=== PATIENT | female | born 1960 | race Caucasian/White ===

== ENCOUNTER 2022-10-04 07:39 | Emergency (ER) | payer BC, OTHER ==
[~2022-10-04] VITALS: Ht 157.5 cm; Wt 102.8 kg
[2022-10-04 07:40] VITALS: TEMP 98.4
[2022-10-04] MEDS ORDERED: FLON1SPR NARES (08:03)
[2022-10-04] MEDS ORDERED: SYST1SOL4 OP (08:03)
[2022-10-04] MEDS ORDERED: PRIL20TA2 PO (08:03)
[2022-10-04] MEDS ORDERED: ZYRTTAB8 PO (08:03)
[2022-10-04] MEDS ORDERED: dexAMETHasone 20MG/5ML VIAL IV ONE (11:25)
[2022-10-04] MEDS ORDERED: KETOROLAC 30 MG/ML 1ML VIAL IV ONE (11:25)
[2022-10-04] MEDS ORDERED: CLINDAMYCIN 900 MG in IV 1 EA IV ONE (11:25)
[2022-10-04] MEDS ORDERED: ISOVUE-370 76% 100ML VIAL As Ordered ONE (11:58)
[2022-10-04 12:00] LABS: BASO % 0.5 % (0.0-1.0); EOS % 0.5 % (0.0-3.0); HEMOGLOBIN 12.7 g/dl (12.0-15.5); LYMPH # 2.1 10^3/uL (1.5-5.0); LYMPH % 26.2 % (24.0-44.0); MEAN CORPUSCULAR HEMOGLOBIN 28.8 pg (27.0-33.0); MEAN CORPUSCULAR HGB CONC 31.8 g/dl (32.0-36.5); MEAN CORPUSCULAR VOLUME 90.7 fl (80.0-96.0); MONO # 0.4 10^3/uL (0.0-0.8); MONO % 5.3 % (2.0-8.0); NEUTROPHILS # 5.4 10^3/uL (1.5-8.5); NEUTROPHILS % 67.1 % (36.0-66.0); PLATELET COUNT, AUTOMATED 367 10^3/uL (150-450); RED BLOOD COUNT 4.41 10^6/uL (4.00-5.40); WHITE BLOOD COUNT 8.1 10^3/uL (4.0-10.0)
[2022-10-04 12:19] LABS: ALBUMIN 4.1 G/DL (3.2-5.2); BILIRUBIN,DIRECT 0.4 MG/DL (<0.4); BILIRUBIN,TOTAL 1.6 MG/DL (0.3-1.2); C REACTIVE PROTEIN QUANTITATIV 2.5 MG/DL (<1.0); TOTAL PROTEIN 7.4 G/DL (5.7-8.2)
[2022-10-04 13:43] VITALS: BP 138/76; O2SAT 98
[2022-10-04] MEDS ORDERED: METR-265 PO (14:13)
[2022-10-04] MEDS ORDERED: CIPR-249 PO (14:13)
== END 2022-10-04 14:40 | disposition home or self-care (01) ==
LOC: M ED 07:39
DX: K12.2 Cellulitis and abscess of mouth (principal); K57.92 Diverticulitis of intestine, part unspecified, without perforation or abscess without bleeding; K02.9 Dental caries, unspecified; Z79.83 Long term (current) use of bisphosphonates; Z79.899 Other long term (current) drug therapy; Z88.0 Allergy status to penicillin; Z91.013 Allergy to seafood; Z91.010 Allergy to peanuts
CPT/HCPCS: 70491; 74177; 80047; 80076; 83690; 85025; 86140; 96365; 96375; 99283; J0737; J1100; J1885; Q9967

== ENCOUNTER 2022-12-29 06:37 | Day surgery (SDC) | payer OTHER ==
[~2022-12-29] VITALS: Ht 157.5 cm; Wt 98.6 kg
[~2022-12-29 06:37] MED LIST: CIPR-249 PO; FLON1SPR NARES; METR-265 PO; NS 1,000 ML IV ONE; PRIL20TA2 PO; SYST1SOL4 OP; ZYRTTAB8 PO
[2022-12-29] MEDS ORDERED: CLON2TAB14 PO (07:14)
[2022-12-29] MEDS ORDERED: propofoL 200 MG/20 ML VIAL As Ordered ONE (07:35)
[2022-12-29] MEDS ORDERED: LIDOCAINE 2% 100MG/5ML SDV (FOR ANES.) As Ordered ONE (07:35)
[2022-12-29] MEDS ORDERED: fentaNYL 100 MCG/2 ML INJECTION As Ordered ONE (07:35)
[2022-12-29 08:30] VITALS: BP 103/64; O2SAT 98
== END 2022-12-29 08:47 | disposition home or self-care (01) ==
LOC: M OPP 06:37
PROVIDERS: ATTEND Surgery
DX: Z12.11 Encounter for screening for malignant neoplasm of colon (principal); D12.3 Benign neoplasm of transverse colon; K57.30 Diverticulosis of large intestine without perforation or abscess without bleeding; K44.9 Diaphragmatic hernia without obstruction or gangrene; K31.7 Polyp of stomach and duodenum; K31.89 Other diseases of stomach and duodenum; R10.12 Left upper quadrant pain; Z79.1 Long term (current) use of non-steroidal anti-inflammatories (NSAID); Z79.51 Long term (current) use of inhaled steroids; Z79.52 Long term (current) use of systemic steroids; Z79.899 Other long term (current) drug therapy; Z88.0 Allergy status to penicillin; Z91.018 Allergy to other foods; Z91.013 Allergy to seafood
CPT/HCPCS: 43239; 45385; 88305; J3010

== ENCOUNTER → 2023-01-10 | Outpatient (CLI) | payer OTHER ==
[~2023-01-10] MED LIST changes: +CLON2TAB14 PO; -NS 1,000 ML IV ONE
[2023-01-10 08:37] LABS: HEMATOCRIT 40.2 % (36.0-47.0); HEMOGLOBIN 12.5 g/dl (12.0-15.5); MEAN CORPUSCULAR HEMOGLOBIN 28.4 pg (27.0-33.0); MEAN CORPUSCULAR HGB CONC 31.1 g/dl (32.0-36.5); MEAN CORPUSCULAR VOLUME 91.4 fl (80.0-96.0); PLATELET COUNT, AUTOMATED 284 10^3/uL (150-450); WHITE BLOOD COUNT 5.9 10^3/uL (4.0-10.0)
[2023-01-10 09:05] LABS: ALBUMIN 3.7 G/DL (3.2-5.2); ALKALINE PHOSPHATASE 101 U/L (46-116); ALT/SGPT 25 U/L (7.0-40); AST/SGOT 23 U/L (<34); BILIRUBIN,TOTAL 0.9 MG/DL (0.3-1.2); BLOOD UREA NITROGEN 16 MG/DL (9-23); CARBON DIOXIDE LEVEL 27 MMOL/L (20-31); CHLORIDE LEVEL 106 MMOL/L (98-107); CHOLESTEROL LEVEL 235 MG/DL (<200); CHOLESTEROL RISK RATIO 2.97 (<5); GLOMERULAR FILTRATION RATE > 60.0 (>45); GLUCOSE, FASTING 102 MG/DL (74-106); HDL CHOLESTEROL 79.1 MG/DL (>40); LDL CHOLESTEROL 116.7 MG/DL (<100); NON-HDL-C 155.9 MG/DL; POTASSIUM SERUM 3.8 MMOL/L (3.5-5.1); SODIUM LEVEL 142 MMOL/L (136-145); TOTAL PROTEIN 6.7 G/DL (5.7-8.2); TRIGLYCERIDES LEVEL 196 MG/DL (<150)
[2023-01-10 09:06] LABS: THYROID STIMULATING HORMONE 3.686 uIU/ML (0.55-4.78); TOTAL 25(OH) VITAMIN D 9.1 NG/ML (20.0-100.0)
[2023-01-10 09:07] LABS: HEMOGLOBIN A1c 5.2 % (4.0-6.0)
== END ==
LOC: M RAD 07:46
PROVIDERS: ATTEND Family Medicine
DX: I10 Essential (primary) hypertension (principal); E03.9 Hypothyroidism, unspecified; R53.83 Other fatigue; Z79.899 Other long term (current) drug therapy

== ENCOUNTER → 2023-01-23 | Outpatient (CLI) | payer OTHER | LOC: M RAD 06:48 | PROVIDERS: ATTEND Physician Assistant | DX: R10.12 Left upper quadrant pain (principal) ==

== ENCOUNTER → 2023-07-01 | Outpatient (CLI) | payer OTHER ==
[2023-07-01 09:34] LABS: HEMOGLOBIN 13.4 g/dl (12.0-15.5); MEAN CORPUSCULAR HEMOGLOBIN 29.7 pg (27.0-33.0); MEAN CORPUSCULAR HGB CONC 32.7 g/dl (32.0-36.5); MEAN CORPUSCULAR VOLUME 90.9 fl (80.0-96.0); PLATELET COUNT, AUTOMATED 342 10^3/uL (150-450); RED BLOOD COUNT 4.51 10^6/uL (4.00-5.40); WHITE BLOOD COUNT 5.9 10^3/uL (4.0-10.0)
[2023-07-01 09:45] LABS: INR 0.98; PROTHROMBIN TIME 12.7 SECONDS (12.5-14.5)
[2023-07-01 09:57] LABS: ALBUMIN 3.7 G/DL (3.2-5.2); ALKALINE PHOSPHATASE 110 U/L (46-116); ALT/SGPT 36 U/L (7.0-40); AST/SGOT 24 U/L (<34); BILIRUBIN,TOTAL 1.7 MG/DL (0.3-1.2); BLOOD UREA NITROGEN 18 MG/DL (9-23); CALCIUM LEVEL 9.2 MG/DL (8.3-10.6); CARBON DIOXIDE LEVEL 32 MMOL/L (20-31); CHLORIDE LEVEL 102 MMOL/L (98-107); CHOLESTEROL LEVEL 285 MG/DL (<200); CREATININE FOR GFR 0.96 MG/DL (0.55-1.30); GLOMERULAR FILTRATION RATE > 60.0 (>45); GLUCOSE, FASTING 104 MG/DL (74-106); HDL CHOLESTEROL 81.3 MG/DL (>40); LDL CHOLESTEROL 170.5 MG/DL (<100); NON-HDL-C 203.7 MG/DL; POTASSIUM SERUM 3.6 MMOL/L (3.5-5.1); SODIUM LEVEL 139 MMOL/L (136-145); TRIGLYCERIDES LEVEL 166 MG/DL (<150)
[2023-07-01 10:01] LABS: THYROID STIMULATING HORMONE 2.919 uIU/ML (0.55-4.78)
== END ==
LOC: M RAD 08:10
PROVIDERS: ATTEND Family Medicine
DX: Z01.818 Encounter for other preprocedural examination (principal); I10 Essential (primary) hypertension; Z86.39 Personal history of other endocrine, nutritional and metabolic disease

== ENCOUNTER 2023-07-18 07:20 | Day surgery (SDC) | payer OTHER ==
[~2023-07-18] VITALS: Ht 157.5 cm; Wt 96.2 kg
[~2023-07-18 07:20] MED LIST changes: +ALBU8.5H INH; +CLON1TAB8 PO; +DOXY100C3 PO; +ERGO500029 PO; +FAMO40TA3 PO; +HEPARIN SOD (PORCINE) 5000UNITS/ML 1ML VIAL/SYRINGE SQ ONE; +TRIA37.577 PO
[2023-07-18] MEDS: LR 1,000 ML IV SCH (09:01)
[2023-07-18] MEDS ORDERED: CLINDAMYCIN 900 MG in IV 1 EA IV ONE (09:10)
[2023-07-18] MEDS ORDERED: propofoL 200 MG/20 ML VIAL As Ordered ONE (10:15)
[2023-07-18] MEDS ORDERED: dexmedeTOMIDine (4MCG/ML)200MCG/50ML BTL (PRECEDEX) As Ordered ONE (10:15)
[2023-07-18] MEDS ORDERED: LIDOCAINE 2% 100MG/5ML SDV (FOR ANES.) As Ordered ONE (10:15)
[2023-07-18] MEDS ORDERED: SUGAMMADEX SODIUM 500 MG/5 ML VIAL (BRIDION) As Ordered ONE (10:15)
[2023-07-18] MEDS ORDERED: fentaNYL 100 MCG/2 ML INJECTION As Ordered ONE (10:15)
[2023-07-18] MEDS ORDERED: ROCURONIUM BROMIDE 50MG/5ML VIAL As Ordered ONE (10:15)
[2023-07-18] MEDS ORDERED: ONDANSETRON 4MG 2ML VIAL As Ordered ONE (10:15)
[2023-07-18] MEDS ORDERED: MIDAZOLAM INJ 2MG/2ML VIAL As Ordered ONE (10:16)
[2023-07-18] MEDS ORDERED: KETAMINE HCL 200MG/20ML VIAL As Ordered ONE (10:22)
[2023-07-18] MEDS ORDERED: ePHEDrine SULFATE 25 MG/5 ML(5MG/ML) SYRINGE As Ordered ONE (11:47)
[2023-07-18] MEDS ORDERED: PHENYLephrine 500MCG 5ML (100MCG/ML) SYRINGE As Ordered ONE (11:47)
[2023-07-18] MEDS ORDERED: ACETAMINOPHEN 1000MG 100ML IV BAG As Ordered ONE (11:50)
[2023-07-18] MEDS ORDERED: fentaNYL 100 MCG/2 ML INJECTION IV PRN (13:00)
[2023-07-18] MEDS ORDERED: MORPHINE 2 MG/ML 1ML VIAL IV PRN (13:00)
[2023-07-18] MEDS ORDERED: oxyCODONE 5MG TAB PO PRN (13:00)
[2023-07-18] MEDS ORDERED: ONDANSETRON 4MG 2ML VIAL IV PRN (13:00)
[2023-07-18] MEDS: IBUPROFEN 800 MG TAB PO STA (14:20)
[2023-07-18 14:35] VITALS: BP 121/81; TEMP 96.8; O2SAT 98
== END 2023-07-18 14:40 | disposition home or self-care (01) ==
LOC: M SDC 07:20
PROVIDERS: ATTEND Plastic Surgery Surgery of the Hand
DX: D17.24 Benign lipomatous neoplasm of skin and subcutaneous tissue of left leg (principal); D17.5 Benign lipomatous neoplasm of intra-abdominal organs; I10 Essential (primary) hypertension; I34.1 Nonrheumatic mitral (valve) prolapse; K21.9 Gastro-esophageal reflux disease without esophagitis; R21 Rash and other nonspecific skin eruption; F41.9 Anxiety disorder, unspecified; F32.A Depression, unspecified; J45.909 Unspecified asthma, uncomplicated; Z91.010 Allergy to peanuts; Z91.018 Allergy to other foods; Z91.040 Latex allergy status; Z91.013 Allergy to seafood; Z88.0 Allergy status to penicillin; Z79.51 Long term (current) use of inhaled steroids; Z79.899 Other long term (current) drug therapy
CPT/HCPCS: 22902; 27337; 88305; C9290; J0131; J0665; J1100; J2250; J2371; J2405; J3010

== ENCOUNTER → 2023-09-08 | Outpatient (REF) | payer OTHER ==
[~2023-09-08] MED LIST changes: -HEPARIN SOD (PORCINE) 5000UNITS/ML 1ML VIAL/SYRINGE SQ ONE
[2023-09-12 20:52] LABS: ACETONE, URINE None Detected; ETHANOL, URINE None Detected; ISOPROPANOL, URINE None Detected; METHANOL, URINE None Detected
== END ==
LOC: M LAB REF 12:48
PROVIDERS: ATTEND Family Medicine
DX: I25.10 Atherosclerotic heart disease of native coronary artery without angina pectoris (principal)

== ENCOUNTER → 2024-06-10 | Outpatient (CLI) | payer MEDICARE, MEDICAID ==
[2024-06-10 08:11] LABS: HEMATOCRIT 38.9 % (36.0-47.0); HEMOGLOBIN 13.3 g/dl (12.0-15.5); MEAN CORPUSCULAR HGB CONC 34.2 g/dl (32.0-36.5); MEAN CORPUSCULAR VOLUME 87.8 fl (80.0-96.0); PLATELET COUNT, AUTOMATED 360 10^3/uL (150-450); RED BLOOD COUNT 4.43 10^6/uL (4.00-5.40); WHITE BLOOD COUNT 7.1 10^3/uL (4.0-10.0)
[2024-06-10 08:35] LABS: HEMOGLOBIN A1c 5.1 % (4.0-6.0)
[2024-06-10 08:44] LABS: THYROID STIMULATING HORMONE 3.952 uIU/ML (0.55-4.78)
[2024-06-10 08:58] LABS: ALBUMIN 4.1 G/DL (3.2-5.2); BILIRUBIN,TOTAL 1.4 MG/DL (0.3-1.2); CALCIUM LEVEL 9.7 MG/DL (8.3-10.6); CHOLESTEROL RISK RATIO 3.25 (<5); CREATININE FOR GFR 1.2 MG/DL (0.55-1.30); GLOMERULAR FILTRATION RATE 48.6 (>45); HDL CHOLESTEROL 67.2 MG/DL (>40); LDL CHOLESTEROL 126.2 MG/DL (<100); NON-HDL-C 151.8 MG/DL; POTASSIUM SERUM 2.9 MMOL/L (3.5-5.1); TOTAL PROTEIN 7.2 G/DL (5.7-8.2)
== END ==
LOC: M LAB 07:25
PROVIDERS: ATTEND Family Medicine
DX: I10 Essential (primary) hypertension (principal); D64.9 Anemia, unspecified; R53.83 Other fatigue; Z79.899 Other long term (current) drug therapy

== ENCOUNTER → 2024-06-20 | Outpatient (CLI) | payer MEDICARE, MEDICAID | LOC: M RAD 06:12 | PROVIDERS: ATTEND Family Medicine | DX: E87.6 Hypokalemia (principal); I10 Essential (primary) hypertension; R00.0 Tachycardia, unspecified ==

== ENCOUNTER → 2025-01-21 | Outpatient (CLI) | payer MEDICARE, MEDICAID ==
[2025-01-21 08:23] LABS: ALT/SGPT 11.0 U/L (7.0-40); AST/SGOT 18.0 U/L (<34); CALCIUM LEVEL 9.9 MG/DL (8.3-10.6); CARBON DIOXIDE LEVEL 29.0 MMOL/L (20-31); CHLORIDE LEVEL 97.0 MMOL/L (98-107); CHOLESTEROL LEVEL 277.0 MG/DL (<200); CHOLESTEROL RISK RATIO 3.38 (<5); CREATININE FOR GFR 1.22 MG/DL (0.55-1.30); GLOMERULAR FILTRATION RATE 50.2 (>45); LDL CHOLESTEROL 167.7 MG/DL (<100); NON-HDL-C 195.1 MG/DL; POTASSIUM SERUM 3.4 MMOL/L (3.5-5.1); SODIUM LEVEL 137.0 MMOL/L (136-145); TRIGLYCERIDES LEVEL 137.0 MG/DL (<150)
[2025-01-21 08:25] LABS: TOTAL 25(OH) VITAMIN D 70.5 NG/ML (20.0-100.0)
[2025-01-21 08:28] LABS: ESTIMATED AVERAGE GLUCOSE 111.0 MG/DL (60-110)
== END ==
LOC: M LAB 06:57
PROVIDERS: ATTEND Student in an Organized Health Care Education/Training Program
DX: E55.9 Vitamin D deficiency, unspecified (principal); E78.5 Hyperlipidemia, unspecified; Z68.38 Body mass index [BMI] 38.0-38.9, adult

== ENCOUNTER → 2025-01-27 | Outpatient (REF) | payer MEDICARE, MEDICAID ==
[2025-01-27 15:09] LABS: THYROGLOBULIN ANTIBODY 19.0 U/ML (<60.0)
[2025-01-27 15:10] LABS: FREE T4 1.08 NG/DL (0.89-1.76); THYROID PEROXIDASE ANTIBODY < 28.0 U/ML (<60.0)
== END ==
LOC: M LAB REF 14:11
PROVIDERS: ATTEND Student in an Organized Health Care Education/Training Program
DX: R79.89 Other specified abnormal findings of blood chemistry (principal)